=== PATIENT | female | born 1955 | race Caucasian/White ===

== ENCOUNTER 2016-10-28 09:43 | Emergency (ER) | payer OTHER, MEDICARE, MEDICAID ==
[2016-10-28 09:43] VITALS: BMI 25.7
[2016-10-28 09:47] VITALS: BP 142/110; PULSE 110; RESP 22; TEMP 98.9; O2SAT 100
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
== END 2016-10-28 13:55 | disposition home or self-care (01) ==
LOC: H.ER 09:43
DX: M54.5 Low back pain (principal); V79.9XXA Bus occupant (driver) (passenger) injured in unspecified traffic accident, initial encounter

== ENCOUNTER 2018-05-12 23:22 | Emergency (ER) | payer MEDICARE, MEDICAID ==
[2018-05-12 23:23] VITALS: BMI 25.7
[2018-05-12 23:47] VITALS: O2SAT 98
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
[2018-05-13 01:15] LABS: BASO % 0.6 % (0.0-2.0); EOS # 0.7 K/uL (0.0-0.7); EOS % 8.2 % (0.0-4.0); HEMOGLOBIN 12.4 g/dL (12.0-16.0); LYMPH # 2.2 K/uL (1.0-4.3); LYMPH % 27.2 % (20.0-40.0); MEAN CELL VOLUME 90.7 fl (81.0-99.0); MEAN CORPUSCULAR HGB CONC 33.1 g/dL (33.0-37.0); MEAN PLATELET VOLUME 9.8 fl (7.2-11.7); MONO # 0.5 K/uL (0.0-0.8); MONO % 6.4 % (0.0-10.0); NEUT # 4.7 K/uL (1.8-7.0); NEUT % 57.6 % (50.0-75.0); NRBC % 0.1 % (0.0-0.0); RBC 4.11 Mil/uL (3.80-5.20); RED CELL DISTRIBUTION WIDTH 12.6 % (11.5-14.5); WHITE BLOOD COUNT 8.2 K/uL (4.8-10.8)
[2018-05-13 01:24] LABS: ALB/GLOB RATIO 1.2 (1.0-2.1); ALBUMIN 4.5 g/dL (3.5-5.0); ALT/SGPT 30 U/L (9-52); AST/SGOT 27 U/L (14-36); BLOOD UREA NITROGEN 21 mg/dl (7-17); CALCIUM 10.2 mg/dL (8.4-10.2); GFR NON-AFRICAN AMERICAN > 60
[2018-05-13 03:10] VITALS: BP 142/84; PULSE 74; RESP 17; TEMP 98.4
--- NOTE | 2018-05-13 08:08 | CARD ---
APPROVED REPORT Date of service: 05/13/2018 EKG Measurement Heart [id number] <Conclusion> Normal sinus rhythm Possible Left atrial enlargement Borderline ECG
== END 2018-05-13 02:42 | disposition home or self-care (01) ==
LOC: H.ER 23:22
DX: E11.9 Type 2 diabetes mellitus without complications (principal); I10 Essential (primary) hypertension; Z79.84 Long term (current) use of oral hypoglycemic drugs